=== PATIENT | male | born 1970 | race Caucasian/White ===

== ENCOUNTER 2018-07-18 17:29 | Emergency (ER) | payer MEDICARE, MEDICAID ==
--- NOTE | 2018-07-18 18:14 | ED Physician Chart ---
ED Chief Complaint/HPI - Patient Information Date Seen:: 07/18/18 Time Seen:: 17:44 Chief Complaint:: congestive heart failure History of Present Illness:: this is a 48 yo male with a brain [facility], has atrial fib, epilepsy,hypertension,hyperlipidemia, hydrocephalus, major depressive disorder. Allergies:: Allergies Allergy/AdvReac Type Severity Reaction Status Date / Time No Known Allergies Allergy Verified 07/18/18 17:38 Vitals:: Vital Signs - 8 hr 07/18/18 17:38 Temp 97.9 F HR 104 RR 16 BP 136/92 O2 Sat % 94 Historian:: Patient, Medical Records Review:: Nurse's Note Reviewed, Old Chart Reviewed, Transfer documents Reviewed ED Review of Systems - Review of Systems General/Constitutional: Other (this patient is unable to give a review of system at this time) Skin: No skin lesions, No rash, No bruising Head: No headache, No light-headedness Eyes: No loss of vision, No pain, No diplopia ENT: No earache, No nasal drainage, No sore throat, No tinnitus Neck: No neck pain, No swelling, No thyromegaly, No stiffness, No mass noted Cardio Vascular: No chest pain, No palpitations, No PND, No orthopnea, No edema Pulmonary: No SOB, No cough, No sputum, No wheezing GI: No nausea, No vomiting, No diarrhea, No pain, No melena, No hematochezia, No constipation, No hematemesis G/U: No dysuria, No frequency, No hematuria Musculoskeletal: No bone or joint pain, No back pain, No muscle pain Endocrine: No polyuria, No polydipsia Psychiatric: No prior psych history, No depression, No anxiety, No suicidal ideation Hematopoietic: No bruising, No lymphadenopathy Allergic/Immuno: No urticaria, No angioedema Neurological: No syncope, No focal symptoms, No weakness, No paresthesia, No headache, No seizure, No dizziness, No confusion, No vertigo ED Past Medical History - Past Medical History Obtainable: Yes Past Medical History: HTN, DM, CVA/TIA, Dyslipidemia, Seizures, Dementia Family History: None Social History: Non Smoker, No Alcohol, No Drug Use, Care Facility Employment:: drug abuse in the past. Surgical History: None Psychiatricy History: Depression, Dementia Medication: Reviewed Family Medical History - Family Member Father History Unknown: Yes ED Physical Exam - Physical Examination General/Constitutional: Awake, Well-developed, well-nourished, Alert, No distress, GCS 15, Non-toxic appearing, Ambulatory Other Gen/Cons comments:: confused and restless without the ability to cooperate Head: Atraumatic Eyes: Lids, conjuctiva normal, PERRL, EOMI Skin: Nl inspection, No rash, No skin lesions, No ecchymosis, Well hydrated, No lymphadenopathy ENMT: External ears, nose nl, Nasal exam nl, Lips, teeth, gums nl Neck: Nontender, Full ROM w/o pain, No JVD, No nuchal rigidity, No bruit, No mass, No stridor Respiratory: Nl effort/Exclusion, Clear to Auscultation, No Wheeze/Rhonchi/Rales Cardio Vascular: RRR, No murmur, gallop, rubs, NL S1 S2 GI: No tenderness/rebounding/guarding, No organomegaly, No hernia, Normal BS's, Nondistended, No mass/bruits, No McBurney tenderness : No CVA tenderness Extremities: No tenderness or effusion, Full ROM, normal strength in all extremities, No edema, Normal digits & nails Neuro/Psych: Alert/oriented, DTR's symmetric, Normal sensory exam, Normal motor strength, Judgement/insight normal, Mood normal, Normal gait, No focal deficits Misc: Normal back, No paraspinal tenderness ED Assessment - Assessment General Assessment: brain tumor demented ED Septic Shock - . Is Septic Shock (SBP<90, OR Lactate>4 mmol\L) present?: No - <6hrs of presentation: Vital Signs: Vital Signs - 8 hr 07/18/18 17:38 Temp 97.9 F HR 104 RR 16 BP 136/92 O2 Sat % 94 ED Reassessment (Disposition) - Reassessment Reassessment Condition:: Unchanged - Diagnosis Diagnosis:: BRAIN TUMOR WHOLE BODY PAIN - Aftercare/Follow up Instructions Notes:: SPOKE TO DR. OLVERA WHO CONCURS THAT THE PATIENT IS NOT IN HEART FAILURE AND MAY RETURN TO THE RESIDENTIAL. - Patient Disposition Discharge/Transfer:: Assisted Care - SNF Condition at Disposition:: Stable
[2018-07-18 18:59] LABS: INR 1.42 (0.5-1.4); PROTHROMBIN TIME (TEST) 14.6 SECONDS (9.5-11.5)
--- NOTE | 2018-07-19 09:39 | Diagnostic Imaging Report ---
Portable chest x-ray HISTORY: Shortness of breath The exam is extremely limited due to patient rotation. Rotation results in incomplete visualization and limited assessment of the right lung. Heart size difficult to assess due to poor inspiration. No obvious focal processes. IMPRESSION: 1. Suboptimal exam as noted above. A repeat nonrotated radiograph would be helpful if possible. 2. No obvious focal processes.
== END 2018-07-18 20:50 | disposition home or self-care (01) ==
LOC: ER 17:29
DX: I11.0 Hypertensive heart disease with heart failure (principal); I50.9 Heart failure, unspecified; C71.9 Malignant neoplasm of brain, unspecified; M79.1 Myalgia; E11.9 Type 2 diabetes mellitus without complications; E78.5 Hyperlipidemia, unspecified; F32.9 Major depressive disorder, single episode, unspecified; Z86.73 Personal history of transient ischemic attack (TIA), and cerebral infarction without residual deficits
CPT/HCPCS: 99285; 96374; 93005; 71045; 84484; 83880; 36415; 84443; 85610; 85730; J1885